=== PATIENT | female | born 1980 | race American Indian/Alaskan Native ===

== ENCOUNTER 2017-10-27 05:38 | Emergency (ER) | payer SELFPAY ==
[2017-10-27] MEDS ORDERED: DUONEB *Not for PRN Use IH ONE ×2 (05:54→05:56)
--- NOTE | 2017-10-27 06:29 | XRay Report ---
FINAL REPORT PROCEDURE: XR CHEST ROUTINE 2V TECHNIQUE: PA and lateral chest radiographs were obtained. CPT 09488 HISTORY: SUNNY COMPARISON: No prior studies are available for comparison. FINDINGS: Heart: Normal. Mediastinum/Vessels: Normal. Lungs/Pleural space: Normal. Bony thorax: No acute osseous abnormality. Other: IMPRESSION: Normal examination.
[2017-10-27] MEDS ORDERED: DECADRON IM ONE (07:18)
--- NOTE | 2017-10-27 07:22 | Emergency Department Report ---
ED General Adult HPI - General Chief complaint: Dyspnea/Respdistress Stated complaint: COUGH Time Seen by Provider: 10/27/17 07:11 Source: patient Mode of arrival: Ambulatory Limitations: No Limitations - History of Present Illness Initial comments: 36-year-old female states that she has been previously on prednisone and has a home neb machine. Despite home nebs she has some persistent wheezing. She complains of having a nonproductive cough. He calls it a bronchitis. There's been no hemoptysis. She states that she's had no fever or chills. She complains of intermittent headache. It is not severe. It is not associated with any other symptoms. She does not describe that is unusual. She has no nausea vomiting neck discomfort and photophobia or neurological change. Patient states that she has just moved to this facility. She states that she does not have a physician and ran out of her albuterol inhaler. -: days(s) Associated Symptoms: denies other symptoms (wheezing and occasional headaches) Treatments Prior to Arrival: other (home neb) - Related Data Previous Rx's Medication Instructions Recorded Last Taken Type Albuterol Sulfate [Albuterol 0.63% 0.63 mg IH TID PRN #60 ml 10/27/17 Unknown Rx NEBS] Albuterol Sulfate [Ventolin HFA] 2 puff IH Q4H PRN #1 hfa.aer.ad 10/27/17 Unknown Rx Azithromycin [Zithromax] 250 mg PO DAILY #6 tablet 10/27/17 Unknown Rx predniSONE [Deltasone] 20 mg PO QDAY #14 tab 10/27/17 Unknown Rx Allergies Allergy/AdvReac Type Severity Reaction Status Date / Time No Known Allergies Allergy Unverified 10/27/17 05:42 ED Review of Systems ROS: Stated complaint: COUGH Other details as noted in HPI Constitutional: denies: chills, fever Eyes: denies: eye pain, eye discharge, vision change ENT: denies: ear pain, throat pain Respiratory: cough, wheezing Cardiovascular: denies: chest pain, palpitations Endocrine: no symptoms reported Gastrointestinal: denies: abdominal pain, nausea, diarrhea Genitourinary: denies: urgency, dysuria, discharge Musculoskeletal: denies: back pain, joint swelling, arthralgia Skin: denies: rash, lesions Neurological: denies: headache, weakness, paresthesias Psychiatric: denies: anxiety, depression Hematological/Lymphatic: denies: easy bleeding, easy bruising ED Past Medical Hx - Past Medical History Previous Medical History?: Yes Additional medical history: Bronchitis - Surgical History Past Surgical History?: No - Social History Smoking Status: Current Every Day Smoker Substance Use Type: None - Medications Home Medications: Home Medications Medication Instructions Recorded Confirmed Last Taken Type Albuterol Sulfate [Albuterol 0.63% 0.63 mg IH TID PRN #60 ml 10/27/17 Unknown Rx NEBS] Albuterol Sulfate [Ventolin HFA] 2 puff IH Q4H PRN #1 hfa.aer.ad 10/27/17 Unknown Rx Azithromycin [Zithromax] 250 mg PO DAILY #6 tablet 10/27/17 Unknown Rx predniSONE [Deltasone] 20 mg PO QDAY #14 tab 10/27/17 Unknown Rx ED Physical Exam - General Limitations: No Limitations General appearance: alert, in no apparent distress - Head Head exam: Present: atraumatic, normocephalic - Eye Eye exam: Present: normal appearance. Absent: scleral icterus - ENT ENT exam: Present: mucous membranes moist - Neck Neck exam: Present: normal inspection. Absent: tenderness, meningismus - Respiratory Respiratory exam: Present: normal lung sounds bilaterally. Absent: respiratory distress - Cardiovascular Cardiovascular Exam: Present: regular rate, normal rhythm. Absent: systolic murmur, diastolic murmur, rubs, gallop - GI/Abdominal GI/Abdominal exam: Present: soft, normal bowel sounds. Absent: distended, tenderness, guarding, rebound, rigid - Extremities Exam Extremities exam: Present: normal inspection. Absent: joint swelling, calf tenderness - Back Exam Back exam: Present: normal inspection - Neurological Exam Neurological exam: Present: alert, oriented X3, CN II-XII intact. Absent: motor sensory deficit - Psychiatric Psychiatric exam: Present: normal affect, normal mood - Skin Skin exam: Present: warm, dry, intact, normal color. Absent: rash ED Course Vital Signs 10/27/17 10/27/17 10/27/17 05:41 07:17 08:00 Temperature 98.8 F Pulse Rate 90 86 Respiratory 18 18 Rate Blood Pressure 144/96 Blood Pressure 121/75 [Right] O2 Sat by Pulse 93 97 99 Oximetry - Reevaluation(s) Reevaluation #1: Given nebs wheezing resolved. An Accu-Chek will be obtained. IM Decadron. Check x-ray. Reevaluation patient. Outpatient referral. 10/27/17 07:22 Reevaluation #2: Patient resting comfortably. No complaints. No chest pain. Cough has improved. Chest x-ray showed nothing acute. Appropriate for outpatient management. 10/27/17 08:42 ED Medical Decision Making - Medical Decision Making Exacerbation of COPD Acute bronchitis Critical care attestation.: If time is entered above; I have spent that time in minutes in the direct care of this critically ill patient, excluding procedure time. ED Disposition Clinical Impression: COPD with exacerbation Acute bronchitis Qualifiers: Bronchitis organism: unspecified organism Qualified Code(s): J20.9 - Acute bronchitis, unspecified Disposition: DC- TO HOME OR SELFCARE Is pt being admited?: No Does the pt Need Aspirin: No Condition: Stable Instructions: Asthma (ED), How to Stop Smoking (ED), Chronic Obstructive Pulmonary Disease (ED), Acute Bronchitis (ED) Additional Instructions: Follow-up with primary care clinic. Rx as directed. Return any acute change or worsening. Prescriptions: Albuterol Sulfate [Albuterol 0.63% NEBS] 0.63 mg IH TID PRN #60 ml PRN Reason: Wheezing Albuterol Sulfate [Ventolin HFA] 2 puff IH Q4H PRN #1 hfa.aer.ad PRN Reason: Shortness Of Breath Azithromycin [Zithromax] 250 mg PO DAILY #6 tablet predniSONE [Deltasone] 20 mg PO QDAY #14 tab Referrals: [facility] [Provider Group] - 2-3 Days Forms: Work/School Release Form(ED) Time of Disposition: 08:45
[2017-10-27 08:11] VITALS: BP 121/75
== END 2017-10-27 09:05 | disposition home or self-care (01) ==
LOC: ED 05:38
DX: J20.9 Acute bronchitis, unspecified (principal); J44.1 Chronic obstructive pulmonary disease with (acute) exacerbation; F17.200 Nicotine dependence, unspecified, uncomplicated
CPT/HCPCS: 71046; 82962; 96372; 99283; J1100

== ENCOUNTER 2018-05-25 18:48 | Emergency (ER) | payer SELFPAY ==
--- NOTE | 2018-05-25 20:19 | Emergency Department Report ---
Blank Doc - Documentation Documentation: back pain times few week upper right chest discomfort. tubal ligation 04/28/18
--- NOTE | 2018-05-25 21:05 | XRay Report ---
PROCEDURE: XR CHEST ROUTINE 2V TECHNIQUE: PA and lateral chest radiographs were obtained. HISTORY: sob, cp COMPARISONS: 10/27/2017. FINDINGS: Heart: Normal. Mediastinum/Vessels: Normal. Lungs/Pleural space: Normal. Bony thorax: No acute osseous abnormality. IMPRESSION: Normal examination. This document is electronically signed by Vince Jacome MD., May 25 2018 09:03:17 PM ET
[2018-05-25 23:04] LABS: Bilirubin,Urine NEG (Negative); Blood,Urine NEG (Negative); Color,Urine Yellow (Yellow); Mucus,Urine 3+ /HPF; Protein,Urine <15 mg/dL mg/dL (Negative)
--- NOTE | 2018-05-26 01:04 | Emergency Department Report ---
ED General Adult HPI - General Chief complaint: Chest Pain Stated complaint: CHEST PAIN/RT SIDE PAIN Time Seen by Provider: 05/26/18 00:48 Source: patient Mode of arrival: Ambulatory Limitations: No Limitations - History of Present Illness Initial comments: 37-year-old -Polish female presents to the emergency room for intermittent chest pain 1 month. Patient states nothing makes it worse she reports intermittent sharp pain. She also complains of back pain is worse when she stands for long period of time. Patient states she used her albuterol inhaler 3 times a day thing and it could've been her asthma/bronchitis. Patient reports she has not taken anything for her pain in the last week. Patient does not have a primary care provider. She does report a past medical history of seasonal allergies and asthma. 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 Severity scale (0 -10): 4 Improves with: medication Worsens with: movement, other (standing for long periods of time) - Related Data Previous Rx's Medication Instructions Recorded Last Taken Type Albuterol Sulfate [Albuterol 0.63% 0.63 mg IH TID PRN #60 ml 10/27/17 Unknown Rx NEBS] Albuterol Sulfate [Ventolin HFA] 2 puff IH Q4H PRN #1 hfa.aer.ad 10/27/17 Unknown Rx Azithromycin [Zithromax] 250 mg PO DAILY #6 tablet 10/27/17 Unknown Rx predniSONE [Deltasone] 20 mg PO QDAY #14 tab 10/27/17 Unknown Rx Nitrofurantoin Monohyd/M-Cryst 100 mg PO BID #14 capsule 05/26/18 Unknown Rx [Macrobid 100 mg Capsule] Allergies Allergy/AdvReac Type Severity Reaction Status Date / Time No Known Allergies Allergy Unverified 10/27/17 05:42 ED Review of Systems ROS: Stated complaint: CHEST PAIN/RT SIDE PAIN Other details as noted in HPI Comment: All other systems reviewed and negative ED Past Medical Hx - Past Medical History Hx Asthma: Yes (bronchitis) Additional medical history: Bronchitis - Surgical History Past Surgical History?: No - Social History Smoking Status: Current Every Day Smoker - Medications Home Medications: Home Medications Medication Instructions Recorded Confirmed Last Taken Type Albuterol Sulfate [Albuterol 0.63% 0.63 mg IH TID PRN #60 ml 10/27/17 Unknown Rx NEBS] Albuterol Sulfate [Ventolin HFA] 2 puff IH Q4H PRN #1 hfa.aer.ad 10/27/17 Unknown Rx Azithromycin [Zithromax] 250 mg PO DAILY #6 tablet 10/27/17 Unknown Rx predniSONE [Deltasone] 20 mg PO QDAY #14 tab 10/27/17 Unknown Rx Nitrofurantoin Monohyd/M-Cryst 100 mg PO BID #14 capsule 05/26/18 Unknown Rx [Macrobid 100 mg Capsule] ED Physical Exam - General Limitations: No Limitations General appearance: alert, in no apparent distress - Head Head exam: Present: atraumatic, normocephalic - Eye Eye exam: Present: normal appearance - ENT ENT exam: Present: mucous membranes moist - Neck Neck exam: Present: normal inspection - Respiratory Respiratory exam: Present: chest wall tenderness (right upper) - Cardiovascular Cardiovascular Exam: Present: regular rate, normal rhythm. Absent: systolic murmur, diastolic murmur, rubs, gallop - GI/Abdominal GI/Abdominal exam: Present: soft, normal bowel sounds - Back Exam Back exam: Present: normal inspection. Absent: tenderness, CVA tenderness (R), CVA tenderness (L) - Neurological Exam Neurological exam: Present: alert, oriented X3 - Psychiatric Psychiatric exam: Present: normal affect, normal mood - Skin Skin exam: Present: warm, dry, intact, normal color. Absent: rash ED Course Vital Signs 05/25/18 23:49 Temperature 98.0 F Pulse Rate 57 L Respiratory 16 Rate Blood Pressure 120/78 O2 Sat by Pulse 100 Oximetry ED Medical Decision Making - Radiology Data Radiology results: report reviewed Patient: DAYNA PIRES MR#: [id number] : 1980 Acct:[id number] Age/Sex: 37 / F ADM Date: 05/25/18 Loc: ED Attending Dr: Ordering Physician: CHERYL MICHAUD Date of Service: 05/25/18 Procedure(s): XR chest routine 2V Accession Number(s): [id number] cc: CHERYL MICHAUD Fluoro Time In Minutes: PROCEDURE: XR CHEST ROUTINE 2V TECHNIQUE: PA and lateral chest radiographs were obtained. HISTORY: sob, cp COMPARISONS: 10/27/2017. FINDINGS: Heart: Normal. Mediastinum/Vessels: Normal. Lungs/Pleural space: Normal. Bony thorax: No acute osseous abnormality. IMPRESSION: Normal examination. This document is electronically signed by Stanton Jacome MD., May 25 2018 09:03:17 PM ET Transcribed By: [facility] [place] Dictated By: STANTON JACMOE Electronically Authenticated By: STANTON JACOME Signed Date/Time: 05/25/182104 DD/ 26 TD/TT: 05/25/182026 Critical care attestation.: If time is entered above; I have spent that time in minutes in the direct care of this critically ill patient, excluding procedure time. ED Disposition Clinical Impression: Chest wall tenderness UTI (urinary tract infection) Qualifiers: Indwelling urinary catheter type: unspecified Encounter type: initial encounter Disposition: - TO HOME OR SELFCARE Is pt being admited?: No Does the pt Need Aspirin: No Condition: Stable Instructions: Urinary Tract Infection in Women (ED), Chest Pain (ED) Additional Instructions: Patient has been evaluated with his provider in fast track. Discussed the patient she has a UTI. Chest x-ray was negative We'll treat patient with Macrobid 100 mg by mouth twice a day 7 days dispense 14 Discussed the patient that her right upper chest pain she can take naproxen. Patient verbalized understanding Prescriptions: Nitrofurantoin Monohyd/M-Cryst [Macrobid 100 mg Capsule] 100 mg PO BID #14 capsule Referrals: RAUL ERWIN MD [Primary Care Provider] - 3-5 Days Forms: Work/School Release Form(ED)
[2018-05-26 01:20] VITALS: BP 127/82
== END 2018-05-26 01:19 | disposition home or self-care (01) ==
LOC: ED 18:48
DX: R07.89 Other chest pain (principal); N39.0 Urinary tract infection, site not specified; J45.909 Unspecified asthma, uncomplicated; F17.200 Nicotine dependence, unspecified, uncomplicated
CPT/HCPCS: 71046; 81001; 93005; 93010

== ENCOUNTER 2019-02-10 02:05 | Emergency (ER) | payer SELFPAY | END 2019-02-10 06:46 | disposition home or self-care (01) | LOC: ED 02:05 | CPT/HCPCS: 71046 ==

== ENCOUNTER 2020-04-20 01:56 | Emergency (ER) | payer BC ==
[2020-04-20 02:59] VITALS: BP 128/77
[2020-04-20] MEDS ORDERED: HYDROcodone/ACETAMINOPHEN 5-325 MG TAB PO STA (03:46)
--- NOTE | 2020-04-20 04:02 | Emergency Department Report ---
ED ENT HPI - General Chief complaint: Dental/Oral Stated complaint: ABSCESS/RT SIDE PAIN/FEVER/FACIAL PAIN Time Seen by Provider: 04/20/20 03:43 Source: patient Mode of arrival: Ambulatory Limitations: No Limitations - History of Present Illness MD complaint: tooth pain -: Sudden, days(s) (1) Location: tooth # Quality: aching, dull Consistency: constant Improves with: none Worsens with: none Context- Dental: history of dental caries Associated Symptoms: toothache, sore throat - Related Data Previous Rx's Medication Instructions Recorded Last Taken Type Albuterol Sulfate [Albuterol 0.63% 0.63 mg IH TID PRN #60 ml 10/27/17 Unknown Rx NEBS] Albuterol Sulfate [Ventolin HFA] 2 puff IH Q4H PRN #1 hfa.aer.ad 10/27/17 Unknown Rx Azithromycin [Zithromax] 250 mg PO DAILY #6 tablet 10/27/17 Unknown Rx predniSONE [Deltasone] 20 mg PO QDAY #14 tab 10/27/17 Unknown Rx Nitrofurantoin Monohyd/M-Cryst 100 mg PO BID #14 capsule 05/26/18 Unknown Rx [Macrobid 100 mg Capsule] Benzonatate [Tessalon Perles] 100 mg PO Q8HR PRN #30 capsule 02/10/19 Unknown Rx Fluticasone [Flonase] 1 spray NS QDAY #1 bottle 02/10/19 Unknown Rx Amoxicillin [Amoxicillin TAB] 875 mg PO BID #20 tablet 04/20/20 Unknown Rx Chlorhexidine Mouthwash [Peridex] 15 ml MM BID #1 bottle 04/20/20 Unknown Rx Lidocaine Viscous 2% 5 ml MM Q3H PRN #120 udc 04/20/20 Unknown Rx Allergies Allergy/AdvReac Type Severity Reaction Status Date / Time No Known Allergies Allergy Unverified 10/27/17 05:42 ED Dental HPI - General Chief complaint: Dental/Oral Stated complaint: ABSCESS/RT SIDE PAIN/FEVER/FACIAL PAIN Time Seen by Provider: 04/20/20 03:43 Source: patient Mode of arrival: Ambulatory Limitations: No Limitations - Related Data Previous Rx's Medication Instructions Recorded Last Taken Type Albuterol Sulfate [Albuterol 0.63% 0.63 mg IH TID PRN #60 ml 10/27/17 Unknown Rx NEBS] Albuterol Sulfate [Ventolin HFA] 2 puff IH Q4H PRN #1 hfa.aer.ad 10/27/17 Unknown Rx Azithromycin [Zithromax] 250 mg PO DAILY #6 tablet 10/27/17 Unknown Rx predniSONE [Deltasone] 20 mg PO QDAY #14 tab 10/27/17 Unknown Rx Nitrofurantoin Monohyd/M-Cryst 100 mg PO BID #14 capsule 05/26/18 Unknown Rx [Macrobid 100 mg Capsule] Benzonatate [Tessalon Perles] 100 mg PO Q8HR PRN #30 capsule 02/10/19 Unknown Rx Fluticasone [Flonase] 1 spray NS QDAY #1 bottle 02/10/19 Unknown Rx Amoxicillin [Amoxicillin TAB] 875 mg PO BID #20 tablet 04/20/20 Unknown Rx Chlorhexidine Mouthwash [Peridex] 15 ml MM BID #1 bottle 04/20/20 Unknown Rx Lidocaine Viscous 2% 5 ml MM Q3H PRN #120 udc 04/20/20 Unknown Rx Allergies Allergy/AdvReac Type Severity Reaction Status Date / Time No Known Allergies Allergy Unverified 10/27/17 05:42 ED Review of Systems ROS: Stated complaint: ABSCESS/RT SIDE PAIN/FEVER/FACIAL PAIN Other details as noted in HPI Comment: All other systems reviewed and negative ED Past Medical Hx - Past Medical History Previous Medical History?: Yes Hx Asthma: Yes (bronchitis) Additional medical history: Bronchitis - Surgical History Past Surgical History?: Yes Additional Surgical History: tubaligation - Social History Smoking Status: Current Every Day Smoker - Medications Home Medications: Home Medications Medication Instructions Recorded Confirmed Last Taken Type Albuterol Sulfate [Albuterol 0.63% 0.63 mg IH TID PRN #60 ml 10/27/17 Unknown Rx NEBS] Albuterol Sulfate [Ventolin HFA] 2 puff IH Q4H PRN #1 hfa.aer.ad 10/27/17 Unknown Rx Azithromycin [Zithromax] 250 mg PO DAILY #6 tablet 10/27/17 Unknown Rx predniSONE [Deltasone] 20 mg PO QDAY #14 tab 10/27/17 Unknown Rx Nitrofurantoin Monohyd/M-Cryst 100 mg PO BID #14 capsule 05/26/18 Unknown Rx [Macrobid 100 mg Capsule] Benzonatate [Tessalon Perles] 100 mg PO Q8HR PRN #30 capsule 02/10/19 Unknown Rx Fluticasone [Flonase] 1 spray NS QDAY #1 bottle 02/10/19 Unknown Rx Amoxicillin [Amoxicillin TAB] 875 mg PO BID #20 tablet 04/20/20 Unknown Rx Chlorhexidine Mouthwash [Peridex] 15 ml MM BID #1 bottle 04/20/20 Unknown Rx Lidocaine Viscous 2% 5 ml MM Q3H PRN #120 udc 04/20/20 Unknown Rx ED Physical Exam - General Limitations: No Limitations General appearance: alert, in no apparent distress - Head Head exam: Present: atraumatic, normocephalic - Eye Eye exam: Present: normal appearance, PERRL, EOMI - ENT ENT exam: Present: mucous membranes moist, other - Neck Neck exam: Present: normal inspection, full ROM. Absent: tenderness, meningismus - Respiratory Respiratory exam: Present: normal lung sounds bilaterally. Absent: respiratory distress, wheezes, rales, chest wall tenderness, accessory muscle use - Cardiovascular Cardiovascular Exam: Present: regular rate, normal rhythm. Absent: systolic murmur, diastolic murmur, rubs, gallop - GI/Abdominal GI/Abdominal exam: Present: soft, normal bowel sounds - Extremities Exam Extremities exam: Present: normal inspection, normal capillary refill - Back Exam Back exam: Present: normal inspection. Absent: CVA tenderness (R), CVA tenderness (L) - Neurological Exam Neurological exam: Present: alert, oriented X3, CN II-XII intact, normal gait - Psychiatric Psychiatric exam: Present: normal affect, normal mood - Skin Skin exam: Present: warm, dry, intact, normal color. Absent: rash ED Course Vital Signs 04/20/20 02:41 Temperature 99.1 F Pulse Rate 74 Respiratory 18 Rate Blood Pressure 128/77 [Left] O2 Sat by Pulse 99 Oximetry Critical care attestation.: If time is entered above; I have spent that time in minutes in the direct care of this critically ill patient, excluding procedure time. ED Disposition Clinical Impression: Dentalgia, Infected dental caries Disposition: DC-01 TO HOME OR SELFCARE Is pt being admited?: No Does the pt Need Aspirin: No Condition: Stable Instructions: Dental Abscess, Acute Pain, Adult Prescriptions: Amoxicillin [Amoxicillin TAB] 875 mg PO BID #20 tablet Lidocaine Viscous 2% 5 ml MM Q3H PRN #120 udc PRN Reason: Pain, Moderate (4-6) Chlorhexidine Mouthwash [Peridex] 15 ml MM BID #1 bottle Referrals: PRIMARY CARE, [Primary Care Provider] - 3-5 Days [facility] [Outside] - 3-5 Days [facility] [Outside] - 3-5 Days
== END 2020-04-20 04:47 | disposition home or self-care (01) ==
LOC: ED 01:56
DX: K02.9 Dental caries, unspecified (principal); K08.89 Other specified disorders of teeth and supporting structures; J45.909 Unspecified asthma, uncomplicated; F17.200 Nicotine dependence, unspecified, uncomplicated; Z98.51 Tubal ligation status; Z79.2 Long term (current) use of antibiotics; Z79.899 Other long term (current) drug therapy
CPT/HCPCS: 99282

== ENCOUNTER 2020-08-11 13:05 | Emergency (ER) | payer BC ==
[2020-08-11 13:13] VITALS: BP 127/74
--- NOTE | 2020-08-11 16:23 | Emergency Department Report ---
ED Back Pain/Injury HPI - General Chief Complaint: Back Pain/Injury Stated Complaint: SEVERE BACK PAIN Time Seen by Provider: 08/11/20 16:02 Source: patient Limitations: No Limitations - History of Present Illness Initial Comments: Patient is a 39-year-old female presents emergency room with complaints of low back pain that began a week ago. She states that her pain exacerbated today and when she got out of bed she felt her back locked up. She states that she had to call out of work due to her back locking up. 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 She denies any fall or injury. She denies any fever, nausea, vomiting, diarrhea, numbness, weakness, bowel or bladder incontinence, urinary symptoms. PMHx bronchitis. No allergies to medications. She states her last menstrual cycle was a week ago. - Related Data Previous Rx's Medication Instructions Recorded Last Taken Type Albuterol Sulfate [Albuterol 0.63% 0.63 mg IH TID PRN #60 ml 10/27/17 Unknown Rx NEBS] Albuterol Sulfate [Ventolin HFA] 2 puff IH Q4H PRN #1 hfa.aer.ad 10/27/17 Unknown Rx Azithromycin [Zithromax] 250 mg PO DAILY #6 tablet 10/27/17 Unknown Rx predniSONE [Deltasone] 20 mg PO QDAY #14 tab 10/27/17 Unknown Rx Nitrofurantoin Monohyd/M-Cryst 100 mg PO BID #14 capsule 05/26/18 Unknown Rx [Macrobid 100 mg Capsule] Benzonatate [Tessalon Perles] 100 mg PO Q8HR PRN #30 capsule 02/10/19 Unknown Rx Fluticasone [Flonase] 1 spray NS QDAY #1 bottle 02/10/19 Unknown Rx Amoxicillin [Amoxicillin TAB] 875 mg PO BID #20 tablet 04/20/20 Unknown Rx Chlorhexidine Mouthwash [Peridex] 15 ml MM BID #1 bottle 04/20/20 Unknown Rx Lidocaine Viscous 2% 5 ml MM Q3H PRN #120 udc 04/20/20 Unknown Rx Menthol/Camphor [Redmon Maben 1 applicatio TP BID #18 oint...g. 08/11/20 Unknown Rx Ointment] Naproxen [EC-Naprosyn] 500 mg PO BID PRN #20 tablet. 08/11/20 Unknown Rx methOCARBAMOL [Robaxin TAB] 500 mg PO BID PRN #20 tab 08/11/20 Unknown Rx Allergies Allergy/AdvReac Type Severity Reaction Status Date / Time No Known Allergies Allergy Unverified 10/27/17 05:42 ED Review of Systems ROS: Stated complaint: SEVERE BACK PAIN Other details as noted in HPI Comment: All other systems reviewed and negative ED Past Medical Hx - Past Medical History Previous Medical History?: Yes Hx Asthma: Yes (bronchitis) Additional medical history: Bronchitis - Surgical History Past Surgical History?: Yes Additional Surgical History: tubaligation - Social History Smoking Status: Current Every Day Smoker - Medications Home Medications: Home Medications Medication Instructions Recorded Confirmed Last Taken Type Albuterol Sulfate [Albuterol 0.63% 0.63 mg IH TID PRN #60 ml 10/27/17 Unknown Rx NEBS] Albuterol Sulfate [Ventolin HFA] 2 puff IH Q4H PRN #1 hfa.aer.ad 10/27/17 Unknown Rx Azithromycin [Zithromax] 250 mg PO DAILY #6 tablet 10/27/17 Unknown Rx predniSONE [Deltasone] 20 mg PO QDAY #14 tab 10/27/17 Unknown Rx Nitrofurantoin Monohyd/M-Cryst 100 mg PO BID #14 capsule 05/26/18 Unknown Rx [Macrobid 100 mg Capsule] Benzonatate [Tessalon Perles] 100 mg PO Q8HR PRN #30 capsule 02/10/19 Unknown Rx Fluticasone [Flonase] 1 spray NS QDAY #1 bottle 02/10/19 Unknown Rx Amoxicillin [Amoxicillin TAB] 875 mg PO BID #20 tablet 04/20/20 Unknown Rx Chlorhexidine Mouthwash [Peridex] 15 ml MM BID #1 bottle 04/20/20 Unknown Rx Lidocaine Viscous 2% 5 ml MM Q3H PRN #120 udc 04/20/20 Unknown Rx Menthol/Camphor [Redmon Maben 1 applicatio TP BID #18 oint...g. 08/11/20 Unknown Rx Ointment] Naproxen [EC-Naprosyn] 500 mg PO BID PRN #20 tablet. 08/11/20 Unknown Rx methOCARBAMOL [Robaxin TAB] 500 mg PO BID PRN #20 tab 08/11/20 Unknown Rx ED Physical Exam - General Limitations: No Limitations General appearance: alert, in no apparent distress - Head Head exam: Present: atraumatic, normocephalic - Eye Eye exam: Present: normal appearance - ENT ENT exam: Present: mucous membranes moist - Neck Neck exam: Present: normal inspection, full ROM. Absent: tenderness, meningismus - Respiratory Respiratory exam: Present: normal lung sounds bilaterally. Absent: respiratory distress, wheezes, rales, rhonchi, stridor, chest wall tenderness, accessory muscle use, decreased breath sounds, prolonged expiratory - Cardiovascular Cardiovascular Exam: Present: regular rate, normal rhythm, normal heart sounds. Absent: systolic murmur, diastolic murmur, rubs, gallop - Back Exam Back exam: Present: normal inspection, full ROM, paraspinal tenderness (bilateral lumbar paraspinal muscular ttp, no midline C-spine, T-spine or L- spine ttp, no step offs, no deformities). Absent: vertebral tenderness - Neurological Exam Neurological exam: Present: alert, oriented X3, CN II-XII intact, normal gait. Absent: motor sensory deficit - Psychiatric Psychiatric exam: Present: normal affect, normal mood - Skin Skin exam: Present: warm, dry, intact ED Course Vital Signs 08/11/20 13:12 Temperature 98.8 F Pulse Rate 57 L Respiratory 18 Rate Blood Pressure 127/74 [Right] O2 Sat by Pulse 97 Oximetry ED Medical Decision Making - Medical Decision Making Patient is a 39-year-old female presents emergency room with complaints of low back pain that began a week ago. She states that her pain exacerbated today and when she got out of bed she felt her back locked up. She states that she had to call out of work due to her back locking up. 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 She denies any fall or injury. She denies any fever, nausea, vomiting, diarrhea, numbness, weakness, bowel or bladder incontinence, urinary symptoms. PMHx bronchitis. No allergies to medications. She states her last menstrual cycle was a week ago. Vitals are stable. On exam:bilateral lumbar paraspinal muscular ttp, no midline C-spine, T-spine or L-spine ttp, no step offs, no deformities, no focal neuro deficits. Symptoms and examination appear most consistent with lumbar strain. Patient has no red flag warning signs of back pain, no trauma, no unexplained weight loss, no fever, no IV drug use, no steroid use, no history of cancer. She has no clinical signs of cauda equina or conus medullaris. Patient given prescription for medications. Advised patient Please use medication as prescribed. Do not drive or operate machinery while taking muscle relaxer Robaxin. May use ice pack, heating pad, rest, and epsom salt bath. Please do not use ointment while using heat or ice. Follow-up with a primary care doctor. Return to emergency room for new or worsening symptoms. Critical care attestation.: If time is entered above; I have spent that time in minutes in the direct care of this critically ill patient, excluding procedure time. ED Disposition Clinical Impression: Low back pain Qualifiers: Chronicity: acute Back pain laterality: bilateral Sciatica presence: without sciatica Qualified Code(s): M54.5 - Low back pain Disposition: TO HOME OR SELFCARE Is pt being admited?: No Does the pt Need Aspirin: No Condition: Stable Instructions: Lumbar Strain Additional Instructions: Please use medication as prescribed. Do not drive or operate machinery while taking muscle relaxer Robaxin. May use ice pack, heating pad, rest, and epsom salt bath. Please do not use ointment while using heat or ice. Follow-up with a primary care doctor. Return to emergency room for new or worsening symptoms. Prescriptions: Naproxen [EC-Naprosyn] 500 mg PO BID PRN #20 tablet. PRN Reason: pain methOCARBAMOL [Robaxin TAB] 500 mg PO BID PRN #20 tab PRN Reason: muscle spasm/pain Menthol/Camphor [Redmon Maben Ointment] 1 applicatio TP BID #18 oint...g. Referrals: KRIS MCCLAIN MD [Staff Physician] - 2-3 Days [facility] [Provider Group] - 2-3 Days KEEGAN SOLIS MD [Staff Physician] - 2-3 Days Forms: Work/School Release Form(ED) Time of Disposition: 16:21 Print Language: [place]
== END 2020-08-11 17:26 | disposition home or self-care (01) ==
LOC: ED 13:05
DX: M54.5 Low back pain (principal); J45.909 Unspecified asthma, uncomplicated; F17.200 Nicotine dependence, unspecified, uncomplicated; Z98.51 Tubal ligation status; Z79.2 Long term (current) use of antibiotics; Z79.899 Other long term (current) drug therapy
CPT/HCPCS: 99282

== ENCOUNTER 2021-10-05 05:39 | Emergency (ER) | payer BC ==
[2021-10-05] MEDS ORDERED: IPRATROPIUM/ALBUTEROL SULFATE 3 ML AMPUL.NEB IH ONE (09:24)
--- NOTE | 2021-10-05 09:25 | Emergency Department Report ---
HPI - General Chief Complaint: Upper Respiratory Infection Time Seen by Provider: 10/05/21 09:08 - HPI HPI: Room 25 The patient is a 40-year-old female present with chief complaint cough and congestion. The patient states she came in contact with a sick family member recently and for the past 3 days she has had a productive cough. Patient admits to chest congestion and nasal congestion as well. Patient states she has had occasional left chest pain. Patient denies history of fever. Patient states she received 1 dose of the Moderna COVID vaccination ED Past Medical Hx - Past Medical History Previous Medical History?: Yes Hx Asthma: Yes (bronchitis) Additional medical history: Bronchitis, anemia, uterine fibroids - Surgical History Additional Surgical History: Bilateral tubal ligation - Family History Family history: no significant - Social History Smoking Status: Never Smoker Substance Use Type: Marijuana - Medications Home Medications: Home Medications Medication Instructions Recorded Confirmed Last Taken Type Albuterol Sulfate [Albuterol 0.63% 0.63 mg IH TID PRN #60 ml 10/27/17 Unknown Rx NEBS] Albuterol Sulfate [Ventolin HFA] 2 puff IH Q4H PRN #1 hfa.aer.ad 10/27/17 Unknown Rx Azithromycin [Zithromax] 250 mg PO DAILY #6 tablet 10/27/17 Unknown Rx predniSONE [Deltasone] 20 mg PO QDAY #14 tab 10/27/17 Unknown Rx Nitrofurantoin Monohyd/M-Cryst 100 mg PO BID #14 capsule 05/26/18 Unknown Rx [Macrobid 100 mg Capsule] Benzonatate [Tessalon Perles] 100 mg PO Q8HR PRN #30 capsule 02/10/19 Unknown Rx Fluticasone [Flonase] 1 spray NS QDAY #1 bottle 02/10/19 Unknown Rx Amoxicillin [Amoxicillin TAB] 875 mg PO BID #20 tablet 04/20/20 Unknown Rx Chlorhexidine Mouthwash [Peridex] 15 ml MM BID #1 bottle 04/20/20 Unknown Rx Lidocaine Viscous 2% 5 ml MM Q3H PRN #120 udc 04/20/20 Unknown Rx Menthol/Camphor [[employer] 1 applicatio TP BID #18 oint...g. 08/11/20 Unknown Rx Ointment] Naproxen [EC-Naprosyn] 500 mg PO BID PRN #20 tablet. 08/11/20 Unknown Rx methOCARBAMOL [Robaxin TAB] 500 mg PO BID PRN #20 tab 08/11/20 Unknown Rx Albuterol Mdi (or & Nicu Only) 2 puff IH QID PRN #8.5 gram 10/05/21 Unknown Rx [ProAir HFA Inhaler] Azithromycin [Zithromax Z-HAMIDA] 0 mg PO DAILY #6 tab 10/05/21 Unknown Rx Benzonatate [Tessalon Perles] 100 mg PO Q8HR #30 cap 10/05/21 Unknown Rx ED Review of Systems ROS: Stated complaint: CHEST PAIN Other details as noted in HPI Constitutional: denies: fever Eyes: denies: eye pain ENT: congestion Respiratory: cough Cardiovascular: as per HPI Endocrine: no symptoms reported Gastrointestinal: denies: abdominal pain Genitourinary: denies: dysuria Musculoskeletal: denies: back pain Neurological: denies: headache Physical Exam - Physical Exam Vital Signs: Vital Signs 10/05/21 10/05/21 05:56 09:11 Temperature 98.6 F Pulse Rate 74 Respiratory 20 Rate Blood Pressure 131/85 O2 Sat by Pulse 98 99 Oximetry Physical Exam: GENERAL: The patient is well-developed well-nourished female lying on stretcher not appearing to be in acute distress. [] HEENT: Normocephalic. Atraumatic. Extraocular motions are intact. Patient has moist mucous membranes. NECK: Supple. Trachea midline CHEST/LUNGS: Clear to auscultation. There is no respiratory distress noted. HEART/CARDIOVASCULAR: Regular. There is no tachycardia. There is no gallop rub or murmur. ABDOMEN: Abdomen is soft, nontender. Patient has normal bowel sounds. There is no abdominal distention. SKIN: There is no rash. There is no edema. There is no diaphoresis. NEURO: The patient is awake, alert, and oriented. The patient is cooperative. The patient has no focal neurologic deficits. The patient has normal speech. GCS 15 MUSCULOSKELETAL: There is no evidence of acute injury. ED Course Vital Signs 10/05/21 10/05/21 05:56 09:11 Temperature 98.6 F Pulse Rate 74 Respiratory 20 Rate Blood Pressure 131/85 O2 Sat by Pulse 98 99 Oximetry ED Medical Decision Making - Lab Data Result diagrams: 10/05/21 09:22 10/05/21 09:22 Laboratory Tests 10/05/21 10/05/21 10/05/21 09:22 09:22 09:22 WBC 5.6 RBC 3.80 Hgb 13.1 Hct 36.9 MCV 97 MCH 34 H MCHC 35 H RDW 14.1 Plt Count 247 Lymph % (Auto) 32.9 [place] % (Auto) 8.2 H Eos % (Auto) 2.7 Baso % (Auto) 1.0 Lymph # (Auto) 1.9 [place] # (Auto) 0.5 Eos # (Auto) 0.2 Baso # (Auto) 0.1 Seg Neutrophils % 55.2 Seg Neutrophils # 3.1 Sodium 138 Potassium 3.8 Chloride 105.2 Carbon Dioxide 26 Anion Gap 11 BUN 8 Creatinine 0.6 Estimated GFR > 60 BUN/Creatinine Ratio 13 Glucose 102 H Calcium 9.0 Total Creatine Kinase 105 CK-MB (CK-2) < 1.0 CK-MB (CK-2) Rel Index 0.9 Troponin T < 0.010 SARS-CoV-2 (PCR) 10/05/21 11:03 WBC RBC Hgb Hct MCV MCH MCHC RDW Plt Count Lymph % (Auto) [place] % (Auto) Eos % (Auto) Baso % (Auto) Lymph # (Auto) [place] # (Auto) Eos # (Auto) Baso # (Auto) Seg Neutrophils % Seg Neutrophils # Sodium Potassium Chloride Carbon Dioxide Anion Gap BUN Creatinine Estimated GFR BUN/Creatinine Ratio Glucose Calcium Total Creatine Kinase CK-MB (CK-2) CK-MB (CK-2) Rel Index Troponin T SARS-CoV-2 (PCR) Negative - EKG Data -: EKG Interpreted by Me EKG shows normal: sinus rhythm, axis Rate: normal - EKG Data When compared to previous EKG there are: previous EKG unavailable Interpretation: other (No ischemic changes seen) - Radiology Data Radiology results: report reviewed (Chest x-ray), image reviewed (Chest x-ray) interpreted by me: Chest x-ray-no definite focal infiltrates, no pneumothorax [facility] [address] [place] [address] XRay Report Signed Patient: DAYNA PIRES MR#: [id number] : 1980 Acct:[id number] Age/Sex: 40 / F ADM Date: 10/05/21 Loc: ED Attending Dr: Ordering Physician: LUIZ CINTRON MD Date of Service: 10/05/21 Procedure(s): XR chest routine 2V Accession Number(s): [id number] cc: LUIZ CINTRON MD Fluoro Time In Minutes: CHEST 2 VIEWS INDICATION / CLINICAL INFORMATION: Cough, congestion. COMPARISON: 02/10/2019 FINDINGS: SUPPORT DEVICES: None. HEART / MEDIASTINUM: No significant abnormality. LUNGS / PLEURA: Right lateral chest is not included on x-ray. No significant pu lmonary or pleural abnormality. No pneumothorax. ADDITIONAL FINDINGS: No significant additional findings. IMPRESSION: 1. No acute findings. Signer Name: Jordan Moreno MD Signed: 10/05/2021 10:17 AM Workstation Name: [id number] Transcribed By: TL Dictated By: Jordan Moreno MD Electronically Authenticated By: Jordan Moreno MD Signed Date/Time: 10/05/21 1017 DD/ 1017 TD/TT: - Differential Diagnosis URI, pneumonia, bronchitis, COVID Critical care attestation.: If time is entered above; I have spent that time in minutes in the direct care of this critically ill patient, excluding procedure time. ED Disposition Clinical Impression: URI (upper respiratory infection) Disposition: 01 HOME / SELF CARE / HOMELESS Is pt being admited?: No Does the pt Need Aspirin: No Condition: Stable Instructions: Cough, Adult, [id number] Additional Instructions: Return to the emergency department should you develop worsening symptoms, inability to tolerate food or liquids, high fever or any other concerns Prescriptions: Albuterol Mdi (or & Nicu Only) [ProAir HFA Inhaler] 2 puff IH QID PRN #8.5 gram PRN Reason: Shortness Of Breath Benzonatate [Tessalon Perles] 100 mg PO Q8HR #30 cap Azithromycin [Zithromax Z-HAMIDA] 0 mg PO DAILY #6 tab Referrals: [facility] [Provider Group] - 3-5 Days Time of Disposition: 12:07
[2021-10-05 09:44] LABS: Basophils # (Auto) 0.1 K/mm3 (0.0-0.1); Eosinophils # (Auto) 0.2 K/mm3 (0.0-0.4); Eosinophils % (Auto) 2.7 % (0.0-4.3); Hematocrit 36.9 % (30.3-42.9); Hemoglobin 13.1 gm/dl (10.1-14.3); Lymphocytes # (Auto) 1.9 K/mm3 (1.2-5.4); Lymphocytes % (Auto) 32.9 % (13.4-35.0); Mean Corpuscular HGB Conc 35 % (30-34); Mean Corpuscular Volume 97 fl (79-97); Monocytes # (Auto) 0.5 K/mm3 (0.0-0.8); Monocytes % (Auto) 8.2 % (0.0-7.3); Platelet Count 247 K/mm3 (140-440); Red Cell Distribution Width 14.1 % (13.2-15.2)
[2021-10-05 10:01] LABS: Blood Urea Nitrogen 8 mg/dL (7-17); Hemolysis Index 0
[2021-10-05 10:12] LABS: BUN/Creatinine Ratio 13; Creatine Kinase MB < 1.0 ng/mL (0.0-4.0)
--- NOTE | 2021-10-05 10:22 | XRay Report ---
CHEST 2 VIEWS INDICATION / CLINICAL INFORMATION: Cough, congestion. COMPARISON: 02/10/2019 FINDINGS: SUPPORT DEVICES: None. HEART / MEDIASTINUM: No significant abnormality. LUNGS / PLEURA: Right lateral chest is not included on x-ray. No significant pulmonary or pleural abn ormality. No pneumothorax. ADDITIONAL FINDINGS: No significant additional findings. IMPRESSION: 1. No acute findings. Signer Name: Jordan Moreno MD Signed: 10/05/2021 10:17 AM Workstation Name: [id number]
[2021-10-05 12:28] VITALS: BP 128/82
--- NOTE | 2021-10-05 22:53 | Electrocardiograph Report ---
[facility] Test Date: 2021-10-05 Test Time: 11:44:17 Pat Name: DAYNA PIRES Department: Room: Gender: F Behavior Specialist: GP : 1980 Requested By: LUIZ CINTRON Order Number: [id number] Reading MD: Rao Chi Measurements Intervals Post Rate: 60 P: -13 UT: 138 QRS: -10 QRSD: 85 T: 10 QT: 401 QTc: 401 Interpretive Statements Sinus rhythm Probable anteroseptal infarct, old No previous ECG available for comparison Electronically Signed On 10-05-2021 22:53:02 EDT by Rao Chi
== END 2021-10-05 12:28 | disposition home or self-care (01) ==
LOC: ED 05:39
DX: J06.9 Acute upper respiratory infection, unspecified (principal); Z20.822 Contact with and (suspected) exposure to COVID-19; F12.90 Cannabis use, unspecified, uncomplicated; Z98.51 Tubal ligation status; Z79.899 Other long term (current) drug therapy
CPT/HCPCS: 36415; 71046; 80048; 82550; 82553; 84484; 85025; 87040; 93005; 94640; 99284; U0003; 94644